=== PATIENT | female | born 1955 | race Caucasian/White ===

== ENCOUNTER 2019-07-06 10:15 | Outpatient (CLI) | payer MEDICARE, SELFPAY ==
--- NOTE | 2019-07-06 10:27 | XR_ITS ---
WS: [id number] XR knee LT 3V* [id number] REASON FOR EXAM: LEFT KNEE PAIN FINDINGS: Total left knee replacement. The prosthesis are seen in good alignment. There is soft tissue swelling surrounding the knee. There is no destructive changes of the supporting bony structures. XR/XR knee LT 3V* [id number] IMPRESSION: Total knee replacement on the left satisfactory. There is soft tissue swelling surrounding the knee.
== END 2019-07-06 10:16 | disposition home or self-care (01) ==
LOC: RAD 10:19
PROVIDERS: Family Provider Nurse Practitioner Family; PCP Nurse Practitioner Family; Visit Provider Orthopaedic Surgery
DX: M25.562 Pain in left knee (principal); Z96.652 Presence of left artificial knee joint
CPT/HCPCS: 73562

== ENCOUNTER 2019-10-12 10:51 | Outpatient (CLI) | payer MEDICARE, SELFPAY ==
--- NOTE | 2019-10-12 11:00 | MM_ITS ---
WS: [id number] BILATERAL SCREENING DIGITAL MAMMOGRAM WITH CAD HISTORY: SCREENING COMPARISON: 07/14/2018, 03/20/2017 and 01/10/2016 Bilateral CC and MLO views submitted. Computer aided detection analyzed. Breast composition: There are scattered areas of fibroglandular density. No suspicious masses, microc alcifications or architectural distortion. Long-term stability of an asymmetry in the upper outer guicho drant of the RIGHT breast with an associated single calcification. MM/[place] [id number] IMPRESSION: BI-RADS: 2-Benign FOLLOW UP: 1 Year Follow-up
== END 2019-10-12 10:52 | disposition home or self-care (01) ==
LOC: RADSHAW 10:56
PROVIDERS: PCP Nurse Practitioner Family; Visit Provider Nurse Practitioner Family
DX: Z12.31 Encounter for screening mammogram for malignant neoplasm of breast (principal)
CPT/HCPCS: 77067

== ENCOUNTER → 2020-05-30 08:34 | Outpatient (BNVA) | payer MEDICARE, SELFPAY | PROVIDERS: PCP Nurse Practitioner Family; Visit Provider Nurse Practitioner Family | DX: R53.83 Other fatigue (principal); Z13.6 Encounter for screening for cardiovascular disorders; M25.562 Pain in left knee | CPT/HCPCS: 80053; 80061; 82306; 82607; 84443; 85025 ==

== ENCOUNTER 2020-06-06 06:00 | Outpatient (RCR) | payer MEDICARE, SELFPAY | END 2020-06-17 23:59 | disposition home or self-care (01) | LOC: TPT 06:00 | PROVIDERS: PCP Nurse Practitioner Family; Referring Provider Nurse Practitioner Family; Visit Provider Nurse Practitioner Family | DX: M25.562 Pain in left knee (principal) | CPT/HCPCS: 97110; 97161 ==

== ENCOUNTER 2020-06-18 06:00 | Outpatient (RCR) | payer MEDICARE, SELFPAY | END 2020-07-15 23:59 | disposition home or self-care (01) | LOC: TPT 06:00 | PROVIDERS: PCP Nurse Practitioner Family; Referring Provider Nurse Practitioner Family; Visit Provider Nurse Practitioner Family | DX: M25.562 Pain in left knee (principal) | CPT/HCPCS: 97110; 97140 ==

== ENCOUNTER 2020-07-16 06:00 | Outpatient (RCR) | payer MEDICARE, SELFPAY | END 2020-08-15 23:59 | disposition home or self-care (01) | LOC: TPT 06:00 | PROVIDERS: PCP Nurse Practitioner Family; Referring Provider Nurse Practitioner Family; Visit Provider Nurse Practitioner Family | DX: M25.562 Pain in left knee (principal) | CPT/HCPCS: 97110; 97140 ==

== ENCOUNTER 2020-08-16 06:00 | Outpatient (RCR) | payer MEDICARE, SELFPAY | END 2020-09-14 23:59 | disposition home or self-care (01) | LOC: TPT 06:00 | PROVIDERS: PCP Nurse Practitioner Family; Referring Provider Nurse Practitioner Family; Visit Provider Nurse Practitioner Family | DX: M25.562 Pain in left knee (principal) | CPT/HCPCS: 97110 ==

== ENCOUNTER 2020-10-02 06:00 | Outpatient (RCR) | payer MEDICARE, SELFPAY | END 2020-10-15 23:59 | disposition home or self-care (01) | LOC: TPT 06:00 | PROVIDERS: PCP Nurse Practitioner Family; Referring Provider Orthopaedic Surgery; Visit Provider Orthopaedic Surgery | DX: T84.038A Mechanical loosening of other internal prosthetic joint, initial encounter (principal); Z96.659 Presence of unspecified artificial knee joint | CPT/HCPCS: 97110; 97162 ==

== ENCOUNTER 2020-10-04 12:35 | Emergency (ER) | payer MEDICARE, SELFPAY ==
[2020-10-04 13:39] VITALS: BP 145/80; PULSE 103; RESP 18; TEMP 36.9; O2SAT 92; BMI 30.2
--- NOTE | 2020-10-04 13:45 | USCV_ITS ---
Echo Rosales Age: 65 Gender: F : 1955 Exam Date: 10/04/2020 14:25 Ordering Phys: Pramod Michele DO Technologist: JAVON Exam Location: [facility] [place] Indication: Left leg pain HISTORY: Left lower extremity pain. PROCEDURES: Comparison: none available. Venous duplex imaging was performed in only the left lower extremity. The following venous structures were evaluated: common femoral vein, profunda vein, proximal portion of the greater saphenous vein, superficial femoral vein, and the popliteal vein. In addition, the posterior tibial and peroneal trunk were evaluated. Serial compression, augmentation maneuvers, and spectral Doppler flow evaluation were performed. FINDINGS: No evidence of DVT seen in any vessel visualized at this time. CONCLUSIONS No evidence of left lower extremity DVT. Antonio Butler MD (Electronically Signed) Final Date: 04 Oct 2020 16:23 S
[2020-10-04 15:07] VITALS: BP 141/84; PULSE 81; O2SAT 98
--- NOTE | 2020-10-04 15:15 | ED_ITS ---
HPI - Extremity Problem General: Chief complaint: Extremity Problem,Nontraumatic Stated complaint: LEFT LOWER LEG PAIN POSS DUE TO SURGERY Time Seen by Provider: 10/04/20 14:59 History of Present Illness: HPI Narrative: 65-year-old female who comes in complaining of redness and discomfort in her left lower leg. She states she had surgery on 09/25/2020 with a knee arthroplasty. MD Complaint: extremity pain and extremity swelling Onset (ago): minute(s) Pain Consistency: intermittent Location: left Quality: aching Radiation: none Relieving factors: nothing Exacerbating factors: nothing Associated symptoms: Deny arthralgias, chest pain, fever(s), myalgias, rash or short of breath Review of Systems Const: Denies: fever(s) ENMT: Denies: throat pain, ear or mastoid pain, nasal discharge or nasal congestion Card: Denies: chest pain Resp: Denies: dyspnea, productive cough or non-productive cough GI: Denies: abdominal pain, nausea, vomiting, hematemesis, coffee ground emesis, diarrhea, constipation, bloating, hematochezia or melena : Denies: flank pain, difficulty voiding, dysuria, urinary frequency or urinary urgency Skin/Breast: Denies: rash Physical Exam Const: COMMON NORMALS: no acute distress GENERAL APPEARANCE: cooperative and comfortable ORIENTATION/CONSCIOUSNESS: Yes awake, Yes oriented to person, Yes oriented to place and Yes oriented to time HENMT: COMMON NORMALS: normocephalic, atraumatic and hearing grossly normal bilaterally HEAD & SCALP: normocephalic and atraumatic Eye: COMMON NORMALS: Equal, round and reactive pupils present, EOMs intact bilaterally, conjunctivae normal and no scleral icterus CONJUNCTIVA: Yes conjunctivae normal PUPIL: Yes Equal, round and reactive pupils present Neck/C-Spine: COMMON NORMALS: no JVD Resp: COMMON NORMALS: normal respiratory effort, No retractions, No use of accessory muscles and clear to auscultation bilaterally AUSCULTATION: clear to auscultation bilaterally Cardio: COMMON NORMALS: no JVD, regular rate, regular rhythm and No murmurs present (Cardio) RATE: regular rate RHYTHM: regular rhythm GI: COMMON NORMALS: Soft to palpation and No hepatosplenomegaly present AUSCULTATION: Yes normoactive bowel sounds PALPATION: Yes Soft to palpation, No Tenderness to palpation present (GI), No Guarding due to palpation present (GI) and Yes No hepatosplenomegaly present Extremity: COMMON NORMALS: normal to inspection, capillary refill normal, no clubbing, cyanosis or edema, no calf tenderness and no pedal edema NARRATIVE EXTREMITY EXAM: No sign infection erythema wound looks good no dehiscence no drainage no radiation. No evidence of significant swelling in the lower extremity no evidence of a compartment syndrome there is a hematoma on the medial aspect of the knee that is mildly tender Neuro: SENSORIUM/ORIENTATION: Yes oriented to person, Yes oriented to place and Yes oriented to time Skin: COMMON NORMALS: no rashes or lesions noted GENERAL SKIN EXAM: no rashes or lesions noted Course Vital Signs: Vital signs: Vital Signs Temperature 98.4 F 10/04/20 13:39 Pulse Rate 85 10/04/20 17:02 Respiratory Rate 18 10/04/20 13:39 Blood Pressure 143/78 10/04/20 17:02 Pulse Oximetry 95 10/04/20 17:02 MDM - Extremity (Nontraumatic) MDM Narrative: Medical decision making narrative: Discussed with the patient as well as with her on-call physician from the orthopedist office where she had this procedure done. Minimal weightbearing ice and elevate recommend they follow-up with orthopedics as soon as possible plain x-ray and venous duplex both were negative today reviewed the results with him Discharge Plan Discharge Patient Disposition: Home Clinical Impression: Left knee pain, History of arthroplasty of left knee Condition: Stable Prescriptions: No Action loratadine 10 mg tablet 10 mg PO BEDTIME RF: 0 multivitamin Tablet 1 tab PO DAILY RF: 0 celecoxib 200 mg capsule 200 mg PO DAILY RF: 0 alendronate 70 mg Tablet 70 mg PO Q7D RF: 0 Colace 100 mg Capsule 200 mg PO BEDTIME RF: 0 omeprazole 20 mg capsule,delayed release(DR/EC) 20 mg PO BID PRN (Reason: Acid Reflux) RF: 0 aspirin 81 mg Tablet,Chewable 81 mg PO BID RF: 0 Miralax 17 gram/dose Powder 17 g PO BEDTIME RF: 0 loratadine 10 mg tablet 10 mg PO BEDTIME RF: 0 oxycodone 10 mg tablet 10 mg PO Q4H PRN (Reason: Pain) RF: 0 primidone 50 mg tablet 50 mg PO BEDTIME RF: 0 trazodone 50 mg tablet 100 mg PO BEDTIME RF: 0 duloxetine 30 mg capsule,delayed release(DR/EC) 30 mg PO BEDTIME RF: 0 Discharge Orders: Discharge ED (Routine); Ordered 10/04/20 Ordered By: Pramod Michele Referrals: Verona Howard NP [Primary Care Provider] - Discharge Diet: Usual diet Discharge Activity: Limit activity as instructed Patient Instructions: Opioid Safety Coding Level of Care Code ED Clinical Care Manager for Alina Stevens
--- NOTE | 2020-10-04 15:43 | XR_ITS ---
WS: [id number] Left knee, 3 views, 10/04/2020 Clinical Data: pain Comparison: Left knee, 07/06/2019. Findings: The left knee arthroplasty has been performed. There are long stems in both the femoral and tibial po rtions of the prosthesis. No loosening is seen. The soft tissues are normal. XR/XR knee LT 3V* [id number] Impression: No change in left knee arthroplasty. Kellgren-Brendan Classification: NA
[2020-10-04 17:02] VITALS: BP 143/78; PULSE 85; O2SAT 95
== END 2020-10-04 17:02 | disposition home or self-care (01) ==
PROVIDERS: Emergency Provider Family Medicine; PCP Nurse Practitioner Family
DX: M25.562 Pain in left knee (principal); M79.605 Pain in left leg; Z96.652 Presence of left artificial knee joint; Z79.82 Long term (current) use of aspirin
CPT/HCPCS: 73562; 93971; 99283

== ENCOUNTER 2020-10-16 06:00 | Outpatient (RCR) | payer MEDICARE, SELFPAY | END 2020-11-14 23:59 | disposition home or self-care (01) | LOC: TPT 06:00 | PROVIDERS: PCP Nurse Practitioner Family; Referring Provider Orthopaedic Surgery; Visit Provider Orthopaedic Surgery | DX: Z47.1 Aftercare following joint replacement surgery (principal); Z96.659 Presence of unspecified artificial knee joint | CPT/HCPCS: 97110 ==

== ENCOUNTER → 2020-11-14 09:25 | Outpatient (BNVA) | payer MEDICARE, SELFPAY | PROVIDERS: PCP Nurse Practitioner Family; Visit Provider Nurse Practitioner Family | DX: F32.9 Major depressive disorder, single episode, unspecified (principal); F41.9 Anxiety disorder, unspecified; Z13.6 Encounter for screening for cardiovascular disorders | CPT/HCPCS: 80053; 80061; 84439; 84443; 85025 ==

== ENCOUNTER 2020-11-15 06:00 | Outpatient (RCR) | payer MEDICARE, SELFPAY | END 2020-12-15 23:59 | disposition home or self-care (01) | LOC: TPT 06:00 | PROVIDERS: PCP Nurse Practitioner Family; Referring Provider Orthopaedic Surgery; Visit Provider Orthopaedic Surgery | DX: Z47.1 Aftercare following joint replacement surgery (principal); Z96.659 Presence of unspecified artificial knee joint; T84.038A Mechanical loosening of other internal prosthetic joint, initial encounter | CPT/HCPCS: 97110; 97164; 97530 ==

== ENCOUNTER 2020-11-20 16:01 | Outpatient (CLI) | payer MEDICARE, SELFPAY ==
--- NOTE | 2020-11-20 16:15 | XR_ITS ---
WS: [id number] SCREENING DEXA SCAN Kopo Kopo CLINICAL INFORMATION: M81.0 - Age-related osteoporosis without current patholog... COMPARISON: None. FINDINGS: The L1-L4 bone mineral density measures 1.044 g/cm2. This corresponds to a T score score of -1.1 and Z score of 0.3. Left femoral neck bone mineral density measures 0.806 g/cm2. This corresponds to a T score of -1.6 an d Z score of -0.5. Right femoral neck bone mineral density measures 0.937 g/cm2. This corresponds to a T score -0.6of an d Z score of 0.5. Mean femoral neck bone mineral density measures 0.872 g/cm2. This corresponds to a T score of -1.1 an d Z score of 0.0. XR/XR DEXA axial skeleton* [id number] IMPRESSION: Osteopenia Patient's FRAX calculated 10 year probability for major osteoporotic fracture i s 9.4 % and osteoporotic hip fracture is 1.2%.
== END 2020-11-20 16:02 | disposition home or self-care (01) ==
LOC: RADWPI 16:03
PROVIDERS: PCP Nurse Practitioner Family; Visit Provider Nurse Practitioner Family
DX: M81.0 Age-related osteoporosis without current pathological fracture (principal); M85.88 Other specified disorders of bone density and structure, other site
CPT/HCPCS: 77080

== ENCOUNTER 2020-12-16 06:00 | Outpatient (RCR) | payer MEDICARE, SELFPAY | END 2021-01-15 23:59 | disposition home or self-care (01) | LOC: TPT 06:00 | PROVIDERS: PCP Nurse Practitioner Family; Referring Provider Orthopaedic Surgery; Visit Provider Orthopaedic Surgery | DX: T84.038D Mechanical loosening of other internal prosthetic joint, subsequent encounter (principal); X58.XXXD Exposure to other specified factors, subsequent encounter; Z96.659 Presence of unspecified artificial knee joint | CPT/HCPCS: 97110; 97150; 97164; 97530 ==

== ENCOUNTER 2020-12-21 07:25 | Outpatient (CLI) | payer MEDICARE, SELFPAY ==
--- NOTE | 2020-12-21 08:00 | US_ITS ---
WS: [id number] THYROID ULTRASOUND (TI-RADS CRITERIA) History: Single thyroid nodule follow-up.. Technique: Ultrasound examination of the thyroid and adjacent soft tissues is performed. FINDINGS: Right lobe: 4.3 cm x 1.1 cm x 1.3 cm. Volume: 3.3 cm3. Normal size and echotexture. No significant are dominant nodules are present. Left lobe: 4.2 cm x 1.7 cm x 1.5 cm. Volume: 5.6 cm3. Normal size and echotexture. No significant or dominant nodules are present. Lymph nodes: None. NODULE: 1 Size: 0.8 x 1.0 x 1.1 cm Location: Mid LEFT Composition: Mixed cystic and solid (1) Echogenicity: Hyperechoic (1) Shape: Not taller than wide (0) Margins: Smooth (0) Echogenic foci: Punctate echogenic foci (3) ACR TI-RADS total points: 5 ACR TI-RADS risk category: TR5 Isthmus: 0.4 cm. US/US thyroid 61093 Impression: TR 4 Recommendation:Follow-up ultrasound in 1, 2, 3 and 5 years. If this nodule incr eases in size greater than 1.5 cm fine-needle aspiration should be performed. If thyroid nodule(s) change on follow-up examinations the recommendations will be altered as necessary.
== END 2020-12-21 07:26 | disposition home or self-care (01) ==
LOC: US 07:27
PROVIDERS: PCP Nurse Practitioner Family; Visit Provider Nurse Practitioner Family
DX: E04.1 Nontoxic single thyroid nodule (principal)
CPT/HCPCS: 76536

== ENCOUNTER → 2020-12-26 10:42 | Outpatient (BNVA) | payer MEDICARE, SELFPAY | PROVIDERS: PCP Nurse Practitioner Family; Visit Provider Internal Medicine | DX: Z01.812 Encounter for preprocedural laboratory examination (principal); Z20.822 Contact with and (suspected) exposure to COVID-19; Z86.010 Personal history of colon polyps | CPT/HCPCS: 87635 ==

== ENCOUNTER 2020-12-31 08:00 | Day surgery (SDC) | payer MEDICARE, SELFPAY ==
[2020-12-26 14:13] VITALS: BMI 30.2
--- NOTE | 2020-12-31 08:21 | ANES.PREANE2 ---
Pre-Anesthetic Assessment Pre-Anesthetic Assessment: Height/Weight: Height 1.55 m Weight 72.575 kg Preop Diagnosis: History of colon polyps Proposed Procedure: Operation Date: 12/31/20 09:30 Proposed Procedures p Colonoscopy 83043 Z86.010(Not Applicable) - Lucio Ferrer MD Familial anesthetic complications: None Was Beta Naomi taken within 24 hours: N/A Was Clonidine taken within 24 hours: N/A Last intake: > 8 hrs Social: Social History: No alcohol and No tobacco Exam: Pre-Anes Outpt Exam: alert, oriented x 3, clear to auscultation bilaterally and regular rate & rhythm Airway: Cervical ROM: WNL MP: 2 Dentition: Full GI: GI: GERD Musc/skel: Musc/skel: OA/DJD Comments: L knee replacement (3x) Anesthetic Plan: ASA status: 1 Risk of > 500 ml blood loss (7ml/kg in children): No PFSH Anesthesia PFSH: Social History Smoking and tobacco status: former smoker Quit status (tobacco): has quit using tobacco Year quit tobacco: 2008 Former quit date comment: smoked PPD x 40 yrs Second hand smoke exposure: No Alcohol intake: unknown Caregiver/support person: Yes (spouse) Lives independently: Yes Household members: spouse Marital status: service: No Current occupational status: retired History of recent travel: No Current gender identity: Female Special kentrell needs: No Agree to transfusion: Yes Data Anesthesia Cardiac Studies: No Data to Display
[2020-12-31 08:32] VITALS: BP 171/102; PULSE 113; RESP 18; TEMP 36.4; O2SAT 97
[2020-12-31] MEDS: sodium chloride 0.9% 1,000 ML 30 ML IV (09:01)
--- NOTE | 2020-12-31 09:17 | W.PM.OPSFHP ---
Same Day Surgery H&P Indication for Procedure/HPI DATE OF PROCEDURE: December 31, 2020 CHIEF COMPLAINT/INDICATIONFOR SURGICAL PROCEDURE: History of colon polyps PREOP DIAGNOSIS: History of colon polyps PLANNED PROCEDRUE: Operation Date: 12/31/20 09:30 Proposed Procedures p Colonoscopy 56260 Z86.010(Not Applicable) - Lucio Ferrer MD Medications/Allergies* Home Medications Medication Instructions Recorded Confirmed Type aspirin 81 mg PO DAILY 10/04/20 12/31/20 History docusate sodium [Colace] 200 mg PO BEDTIME 10/04/20 12/31/20 History multivitamin 1 tab PO DAILY 10/04/20 12/31/20 History Allergies/Adverse Reactions Allergy/AdvReac Type Severity Reaction Status Date / Time iodine Allergy Intermediate rash Verified 12/13/20 09:39 Penicillins Allergy Intermediate stomach Verified 12/13/20 09:39 Current Medications: Generic Name Dose Route Start Last Admin Trade Name Freq PRN Reason Stop Dose Admin Sodium Chloride 1,000 mls @ 30 mls/hr 12/31/20 08:15 12/31/20 09:01 Sodium Chloride 0.9% IV 01/01/21 08:14 30 mls/hr .Q24H PEREZ Administration Pertinent History/Comorbid Conditions* Social History Smoking and tobacco status: former smoker Quit status (tobacco): has quit using tobacco Year quit tobacco: 2008 Former quit date comment: smoked PPD x 40 yrs Second hand smoke exposure: No Alcohol intake: unknown Caregiver/support person: Yes (spouse) Lives independently: Yes Household members: spouse Marital status: service: No Current occupational status: retired History of recent travel: No Current gender identity: Female Special kentrell needs: No Agree to transfusion: Yes Pertinent Exam Findings alert, oriented x 3, clear to auscultation bilaterally, regular rate & rhythm, operative site marked and procedure specific exam findings Recommendations Surgery/Procedure today Coding Level of Care Code Acute Supply Analyst for Alina Stevens
[2020-12-31 10:24] VITALS: BP 111/66; PULSE 89; RESP 16; O2SAT 100
[2020-12-31 10:33] VITALS: O2SAT 95
--- NOTE | 2020-12-31 15:10 | ANE.PACU2 ---
Inpatient post-anesthesia follow up: Airway intact: Yes Vital signs: Temperature 97.5 F Pulse Rate 89 Respiratory Rate 16 Blood Pressure 111/66 Pulse Oximetry 95 Oxygen Delivery Me thod Nasal Cannula Oxygen Flow Rate 2 Fraction of Inspir ed Oxygen Hydration adequate: Yes Nausea and vomiting: No Pain level: 1 Mental status: Baseline
== END 2020-12-31 10:54 | disposition home or self-care (01) ==
PROVIDERS: PCP Nurse Practitioner Family; Visit Provider Internal Medicine
PROC: 0DJD8ZZ Inspection of Lower Intestinal Tract, Via Natural or Artificial Opening Endoscopic (ICD-10-PCS; CPT 45378; principal; 2020-12-31 09:30)
DX: Z12.11 Encounter for screening for malignant neoplasm of colon (principal); Z86.010 Personal history of colon polyps; K57.30 Diverticulosis of large intestine without perforation or abscess without bleeding; K21.9 Gastro-esophageal reflux disease without esophagitis; M19.90 Unspecified osteoarthritis, unspecified site; Z87.891 Personal history of nicotine dependence
CPT/HCPCS: 45378; 96360; 96361; J2704; J7030

== ENCOUNTER → 2021-02-05 12:46 | Outpatient (BNVA) | payer MEDICARE, SELFPAY | PROVIDERS: PCP Nurse Practitioner Family; Visit Provider Nurse Practitioner Family | DX: M79.643 Pain in unspecified hand (principal); R73.9 Hyperglycemia, unspecified; Z13.6 Encounter for screening for cardiovascular disorders; G25.0 Essential tremor; M79.641 Pain in right hand; M79.642 Pain in left hand; S93.401A Sprain of unspecified ligament of right ankle, initial encounter | CPT/HCPCS: 80053; 80061; 82607; 83036; 84443; 84550; 85025; 85651; 86038; 86140; 86431 ==

== ENCOUNTER 2021-02-12 09:56 | Outpatient (CLI) | payer MEDICARE, SELFPAY ==
--- NOTE | 2021-02-12 10:00 | MM_ITS ---
WS: [id number] BILATERAL DIGITAL SCREENING MAMMOGRAPHY WITH CAD CLINICAL INFORMATION: Z12.39 - Encounter for other screening for malignant neop... HISTORY: Screening mammogram. No current complaints. COMPARISON: October 12, 2019 TECHNIQUE: Bilateral CC and MLO views. FINDINGS: Scattered fibroglandular densities bilaterally. No suspicious focal mass, asymmetry, calcifications, or architectural distortion. No evidence of malignancy. A few punctate calcifications right breast. MM/[place] [id number] IMPRESSION: BI-RADS: 2-Benign FOLLOW UP: 1 Year Follow-up Recommend return to annual screening mammography.
== END 2021-02-12 09:57 | disposition home or self-care (01) ==
LOC: RADSHAW 09:59
PROVIDERS: PCP Nurse Practitioner Family; Visit Provider Nurse Practitioner Family
DX: Z12.31 Encounter for screening mammogram for malignant neoplasm of breast (principal)
CPT/HCPCS: 77067

== ENCOUNTER → 2021-02-14 11:03 | Outpatient (BNVA) | payer MEDICARE, SELFPAY | PROVIDERS: PCP Nurse Practitioner Family; Visit Provider Nurse Practitioner Family | DX: M79.643 Pain in unspecified hand (principal) | CPT/HCPCS: 86038 ==

== ENCOUNTER → 2021-04-05 16:34 | Outpatient (BNVA) | payer MEDICARE, SELFPAY | PROVIDERS: PCP Nurse Practitioner Family; Visit Provider Nurse Practitioner Family | DX: M25.511 Pain in right shoulder (principal); M25.541 Pain in joints of right hand; M85.841 Other specified disorders of bone density and structure, right hand | CPT/HCPCS: 73030; 73130 ==

== ENCOUNTER → 2021-11-04 15:46 | Outpatient (BNVA) | payer MEDICARE, SELFPAY | PROVIDERS: PCP Nurse Practitioner Family; Visit Provider Family Medicine | DX: Z12.39 Encounter for other screening for malignant neoplasm of breast (principal); E04.1 Nontoxic single thyroid nodule; R53.82 Chronic fatigue, unspecified; Z00.00 Encounter for general adult medical examination without abnormal findings; Z12.11 Encounter for screening for malignant neoplasm of colon; Z12.31 Encounter for screening mammogram for malignant neoplasm of breast; Z13.6 Encounter for screening for cardiovascular disorders | CPT/HCPCS: 80053; 80061; 82306; 82607; 83540; 84443; 85025 ==

== ENCOUNTER → 2021-11-07 12:58 | Outpatient (BNVA) | payer MEDICARE, SELFPAY | PROVIDERS: PCP Nurse Practitioner Family; Visit Provider Family Medicine | DX: R53.1 Weakness (principal); R07.9 Chest pain, unspecified; F32.A Depression, unspecified | CPT/HCPCS: 82962 ==

== ENCOUNTER 2021-11-14 15:31 | Outpatient (CLI) | payer MEDICARE, SELFPAY ==
--- NOTE | 2021-11-14 15:45 | US_ITS ---
WS: [id number] THYROID ULTRASOUND (TI-RADS CRITERIA) History: Follow-up thyroid nodule.. Technique: Ultrasound examination of the thyroid and adjacent soft tissues is performed. Comparison: 12/21/2020 and 10/15/2018 FINDINGS: Right lobe: 1.0 cm x 1.1 cm x 3.8 cm. Volume: 2.3 cm3. Normal size and echotexture. Lymph nodes: None. Left lobe: 1.4 cm x 1.3 cm x 3.9 cm. Volume: 3.6 cm3. Normal size thyroid. Complex cystic nodule in the mid gland. Details below. Lymph nodes: None. NODULE: 1 Size: 1.0 x 0.8 x 1.2 cm. Location: Mid Composition: Mixed cystic and solid (1) Echogenicity: Hyperechoic (1) Shape: Not taller than wide (0) Margins: Smooth (0) Echogenic foci: None (0) ACR TI-RADS total points: 2 ACR TI-RADS risk category: TR2 Isthmus: 0.2 cm. US/US thyroid 51713 Impression: TR2 Recommendation:Yearly follow-up. The small echogenic foci noted on the prior st udy are not as apparent today and they are slightly more cystic component. If thyroid nodule(s) change on follow-up examinations the recommendations will be altered as necessary.
== END 2021-11-14 15:32 | disposition home or self-care (01) ==
LOC: RAD 15:32
PROVIDERS: PCP Nurse Practitioner Family; Visit Provider Family Medicine
DX: E04.1 Nontoxic single thyroid nodule (principal)
CPT/HCPCS: 76536

== ENCOUNTER → 2022-01-09 17:18 | Outpatient (BNVA) | payer MEDICARE, SELFPAY | PROVIDERS: PCP Nurse Practitioner Family; Visit Provider Family Medicine | DX: R10.30 Lower abdominal pain, unspecified (principal); R19.7 Diarrhea, unspecified | CPT/HCPCS: 81000 ==

== ENCOUNTER → 2022-01-21 11:13 | Outpatient (BNVA) | payer MEDICARE, SELFPAY | PROVIDERS: PCP Nurse Practitioner Family; Visit Provider Family Medicine | DX: N39.0 Urinary tract infection, site not specified (principal); F32.A Depression, unspecified; G25.0 Essential tremor | CPT/HCPCS: 81000 ==

== ENCOUNTER → 2022-02-12 11:31 | Outpatient (BNVA) | payer MEDICARE, SELFPAY | PROVIDERS: PCP Nurse Practitioner Family; Visit Provider Family Medicine | DX: M25.541 Pain in joints of right hand (principal); M25.542 Pain in joints of left hand; E04.1 Nontoxic single thyroid nodule; E78.5 Hyperlipidemia, unspecified; Z00.00 Encounter for general adult medical examination without abnormal findings | CPT/HCPCS: 80053; 80061; 84443; 85025 ==

== ENCOUNTER 2022-02-14 12:45 | Outpatient (CLI) | payer MEDICARE, SELFPAY ==
--- NOTE | 2022-02-14 13:06 | MM_ITS ---
WS: [id number] VIEWS: MLO and CC views both breasts. 3D digital tomosynthesis is also included in this exam. Comparison made with prior exam of 05/06/2013. A 05/10/2015. 03/20/2017, 07/14/2018, 10/12/2019, 1.. Findings: There was no sign of mass, architectural distortion or suspicious calcification in either breast. Sc attered fibroglandular densities MM/[place] [id number] Impression: BI-RADS: 2-Benign FOLLOW-UP: 1 Year Follow-up This mammogram was also analyzed by the Computer Aided Detection System R2 Imag e Elevating Grader Operator.
== END 2022-02-14 12:46 | disposition home or self-care (01) ==
LOC: RAD 12:47
PROVIDERS: PCP Nurse Practitioner Family; Visit Provider Family Medicine
DX: Z12.31 Encounter for screening mammogram for malignant neoplasm of breast (principal)
CPT/HCPCS: 77063; 77067

== ENCOUNTER → 2022-04-24 17:25 | Outpatient (BNVA) | payer MEDICARE, SELFPAY | PROVIDERS: PCP Nurse Practitioner Family; Visit Provider Family Medicine | DX: R05.9 Cough, unspecified (principal); J01.90 Acute sinusitis, unspecified | CPT/HCPCS: 87400 ==

== ENCOUNTER → 2022-06-03 09:39 | Outpatient (BNVA) | payer MEDICARE, SELFPAY | PROVIDERS: PCP Nurse Practitioner Family; Visit Provider Internal Medicine Rheumatology | DX: M19.041 Primary osteoarthritis, right hand (principal); M19.042 Primary osteoarthritis, left hand; Z96.659 Presence of unspecified artificial knee joint; M54.50 Low back pain, unspecified; G89.29 Other chronic pain | CPT/HCPCS: 99204 ==

== ENCOUNTER → 2022-09-01 10:54 | Outpatient (BNVA) | payer MEDICARE, OTHER, SELFPAY | PROVIDERS: Visit Provider Internal Medicine Rheumatology | DX: M19.041 Primary osteoarthritis, right hand (principal); M19.042 Primary osteoarthritis, left hand; Z96.659 Presence of unspecified artificial knee joint; M54.50 Low back pain, unspecified; G89.29 Other chronic pain | CPT/HCPCS: 99214 ==

== ENCOUNTER 2022-09-02 06:00 | Outpatient (RCR) | payer MEDICARE, SELFPAY | END 2022-09-14 23:59 | disposition home or self-care (01) | LOC: TPT 06:00 | PROVIDERS: Visit Provider Physician Assistant | DX: Z47.89 Encounter for other orthopedic aftercare (principal) | CPT/HCPCS: 97110; 97140; 97162 ==

== ENCOUNTER 2022-09-15 06:00 | Outpatient (RCR) | payer MEDICARE, SELFPAY | END 2022-10-14 23:59 | disposition home or self-care (01) | LOC: TPT 06:00 | PROVIDERS: Visit Provider Physician Assistant | DX: Z47.89 Encounter for other orthopedic aftercare (principal) | CPT/HCPCS: 97110 ==

== ENCOUNTER → 2022-10-22 12:15 | Outpatient (BNVA) | payer MEDICARE, SELFPAY | PROVIDERS: Visit Provider Family Medicine | DX: E78.5 Hyperlipidemia, unspecified (principal); K21.9 Gastro-esophageal reflux disease without esophagitis; R10.11 Right upper quadrant pain; Z13.6 Encounter for screening for cardiovascular disorders; R53.83 Other fatigue; M25.562 Pain in left knee; G25.0 Essential tremor; M81.0 Age-related osteoporosis without current pathological fracture; R07.9 Chest pain, unspecified; R53.82 Chronic fatigue, unspecified | CPT/HCPCS: 80053; 80061; 82306; 82607; 83540; 84443 ==

== ENCOUNTER 2022-10-27 13:03 | Outpatient (CLI) | payer MEDICARE, SELFPAY ==
--- NOTE | 2022-10-27 13:15 | US_ITS ---
WS: [id number] Complete ABDOMINAL ULTRASOUND HISTORY: RIGHT upper quadrant pain COMPARISON: None available. Liver: 13.1 cm in length. Normal size liver and echogenicity. No bile duct dilatation or mass. Portal Vein: Normal hepatopetal flow with monophasic waveform. Gallbladder: Normally distended gallbladder with no stones or wall thickening. CBD: 0.3 cm Pancreas: Normal size and echogenicity. Right kidney: 9.0 cm x 4.8 x 3.4 cm. Cortex:1.2 cm. Normal size and echogenicity. No hydronephrosis or mass. Left kidney: 9.9 cm x 5.0 cm x 6.2 cm. Cortex: 1.3 cm. Normal size and echogenicity. No hydronephrosis or mass. Spleen: Normal. Aorta and IVC: Unremarkable abdominal aorta and IVC. US/US abdomen complete* [id number] Impression: Normal complete abdomen ultrasound.
== END 2022-10-27 13:04 | disposition home or self-care (01) ==
LOC: RAD 13:04
PROVIDERS: PCP Family Medicine; Visit Provider Family Medicine
DX: R10.11 Right upper quadrant pain (principal)
CPT/HCPCS: 76700

== ENCOUNTER 2022-11-10 09:47 | Outpatient (CLI) | payer MEDICARE, SELFPAY ==
--- NOTE | 2022-11-10 10:00 | NM_ITS ---
WS: [id number] NUCLEAR MEDICINE HIDA SCAN WITH GALLBLADDER EJECTION FRACTION HISTORY: R10.11 - Right upper quadrant pain COMPARISON: Gallbladder ultrasound 10/27/2022 TECHNIQUE: The patient was intravenously injected with 7.6 mCi of TC99m Mebrofenin. Immediate imaging over the right upper quadrant was followed by 5 minute image and additional images for a total of 60 minutes. Normal uptake of radiotracer throughout the liver. Activity identified in the gallbladder at 20 minutes and well distended by 60 minutes. Activity in the proximal small bowel was seen by 60 minutes. Good washout of the radiotracer from the liver by 60 minutes. The patient then drank 8 ounces of Ensure Plus. Ejection fraction at 60 minutes was 84%. Normal GB ej ection fraction is 35-75%. Post fatty meal symptoms: None. NM/NM hepatobiliary w phar* [id number] IMPRESSION: 1. Normal HIDA scan. 2. Normal gallbladder ejection fraction.
== END 2022-11-10 09:48 | disposition home or self-care (01) ==
LOC: RAD 09:48
PROVIDERS: PCP Family Medicine; Visit Provider Family Medicine
DX: R10.11 Right upper quadrant pain (principal)
CPT/HCPCS: 78227; A9537

== ENCOUNTER → 2022-11-11 12:16 | Outpatient (BNVA) | payer MEDICARE, SELFPAY | PROVIDERS: PCP Family Medicine; Visit Provider Family Medicine | DX: R10.13 Epigastric pain (principal) | CPT/HCPCS: 87338 ==

== ENCOUNTER 2022-11-26 10:55 | Outpatient (CLI) | payer MEDICARE, SELFPAY ==
--- NOTE | 2022-11-26 11:15 | US_ITS ---
WS: [id number] ULTRASOUND THYROID TECHNIQUE: Ultrasound of the thyroid. CLINICAL INFORMATION: E04.1 - Nontoxic single thyroid nodule COMPARISON: November 14, 2021 FINDINGS: Thyroid: Right and left thyroid lobes are normal in size and echotexture. Right thyroid lobe: 3.9 cm x 1.2 cm x 1.9 cm Left thyroid lobe: 4.0 cm x 1.6 cm x 1.3 cm. Complex cystic LEFT thyroid nodule in the mid thyroid measuring 1.3 x 0.7 x 1.0 CM Isthmus: 0.3 mm. Cervical lymphadenopathy: None. NODULE: 1 Size: 1.3 x 0.7 x 1.0 cm. Location: Mid Composition: Mixed cystic and solid (1) Echogenicity: Hyperechoic (1) Shape: Not taller than wide (0) Margins: Smooth (0) Echogenic foci: None (0) ACR TI-RADS total points: 2 ACR TI-RADS risk category: TR2 US/US thyroid 96140 IMPRESSION: Complex cystic LEFT thyroid nodule in the mid thyroid measuring 1.3 x 0.7 x 1.0 CM. This is unchanged since 2021. Recommend 1-2 year follow-up.
== END 2022-11-26 10:56 | disposition home or self-care (01) ==
PROVIDERS: PCP Family Medicine; Visit Provider Family Medicine
DX: E04.1 Nontoxic single thyroid nodule (principal)
CPT/HCPCS: 76536

== ENCOUNTER → 2022-12-09 10:00 | Outpatient (BNVA) | payer MEDICARE, SELFPAY | PROVIDERS: PCP Family Medicine; Visit Provider Surgery | DX: R10.13 Epigastric pain (principal); K21.9 Gastro-esophageal reflux disease without esophagitis; R13.10 Dysphagia, unspecified; Z86.010 Personal history of colon polyps | CPT/HCPCS: 99203 ==

== ENCOUNTER 2023-01-14 08:33 | Day surgery (SDC) | payer MEDICARE, SELFPAY ==
[2023-01-12 08:39] VITALS: BMI 27.6
[2023-01-14 08:52] VITALS: BP 131/86; PULSE 91; RESP 16; TEMP 36.3; O2SAT 97
[2023-01-14] MEDS: sodium chloride 0.9% 1,000 ML 30 ML IV (09:11)
--- NOTE | 2023-01-14 09:24 | ANES.PREANE2 ---
Pre-Anesthetic Assessment Height/Weight: Height 1.55 m Weight 66.224 kg Temp Pulse Resp BP Pulse Ox O2 Del Method 97.3 F L 91 16 131/86 97 Room Air 01/14/23 08:52 01/14/23 08:52 01/14/23 08:52 01/14/23 08:52 01/14/23 08:52 01/14/23 08:52 Preop Diagnosis: abd pain Operation Date: 01/14/23 09:15 Proposed Procedures p 17481 - EGD w/balloon dial R13.10,R10. 13 colonoscopy 85759, Z86.10,K21.0(Not Applicable) - Fabian Laguna DO s Colonoscopy(Not Applicable) - Fabian Laguna DO Familial anesthetic complications: none Was Beta Naomi taken within 24 hours: N/A Was Clonidine taken within 24 hours: N/A Last intake: Intake Last Liquid Date 01/13/23 Last Liquid Time 22:00 Last Solid Date 01/12/23 Last Solid Time 12:00 Last Intake: 22:00 Social No alcohol and No tobacco Exam alert, oriented x 3, clear to auscultation bilaterally and regular rate & rhythm Airway Submandibular: within normal limits Cervical ROM: within normal limits Mallampati: Class II Dentition: full Pulmonary None reported CV/HEM None reported None reported Hepatic None reported GI Gastroesophageal Reflux Disease Metabolic None reported Musc/skel Lower Back Pain Neuropsych Anxiety and Depression Anesthetic Plan ASA status: 2 Anesthesia: MAC Medications/Allergies Home Medications Medication Instructions Recorded Confirmed Last Taken Type aspirin 81 mg chewable tablet 81 mg PO DAILY 10/04/20 01/14/23 01/12/23 History fluticasone propionate 50 2 spray intranasal DAILY #16 grams 11/14/20 01/14/23 01/12/23 Rx mcg/actuation nasal spray,suspension (Flonase Allergy Relief) albuterol sulfate 90 mcg/actuation 2 puff inhalation QID PRN 10/10/21 01/14/23 2 Weeks Ago Rx aerosol inhaler (ProAir HFA) shortness of breath or wheezing ~12/31/22 #8.5 grams loratadine 10 mg tablet 10 mg PO BEDTIME #90 tabs 12/27/21 01/14/23 01/12/23 Rx ammonium lactate 12 % topical cream 1 applic topical DAILY #385 grams 03/01/14/23 01/13/23 Rx pantoprazole 40 mg tablet,delayed 40 mg PO BID #60 tabs 11/10/22 01/14/23 01/13/23 Rx release (Protonix) sucralfate 1 gram tablet (Carafate) 1 g PO TID #90 tabs 11/10/22 01/14/23 1 Week Ago Rx ~01/07/23 primidone 50 mg tablet 50 mg PO QPM 01/12/23 01/14/23 01/13/23 History rosuvastatin 5 mg tablet 5 mg PO QPM 01/12/23 01/14/23 01/13/23 History trazodone 100 mg tablet 100 mg PO QPM 01/12/23 01/14/23 01/12/23 History Allergies Allergy/AdvReac Type Severity Reaction Status Date / Time iodine Allergy Intermediate rash Verified 01/14/23 08:50 Penicillins Allergy Intermediate stomach Verified 01/14/23 08:50 PFSH Anesthesia Medical History Chronic low back pain Osteoarthritis of hands, bilateral Surgical History H/O: hysterectomy 2000; complete hysterectomy History of colonoscopy 12/2020; repeat in 5 years; Dr. Ferrer History of knee surgery left knee September 25, 2020 History of nasal surgery Hx of total knee arthroplasty Family History Other CAD (coronary artery disease) Cancer Family history of premature coronary artery disease Hypertension Rheumatoid arthritis Denies family history of Lupus Social History Smoking and tobacco status: former smoker Quit status (tobacco): has quit using tobacco Year quit tobacco: 2008 Former quit date comment: smoked PPD x 40 yrs Second hand smoke exposure: No Alcohol intake: unknown Substance/Drug Use: never Caregiver/support person: Yes (spouse) Lives independently: Yes Household members: spouse Marital status: service: No Current occupational status: retired Current gender identity: Female Special kentrell needs: No Agree to transfusion: Yes Female Reproductive History Para: 2 Data Anesthesia Cardiac Studies: No Data to Display
--- NOTE | 2023-01-14 09:30 | PM.HP ---
Providers/Chief Complaint Primary Care Provider: Anila Stapleton MD Chief Complaint: [id number] History of Present Illness Echo Rosales is a 67 year old female Medications/Allergies Home Medications Medication Instructions Recorded Confirmed Last Taken Type aspirin 81 mg chewable tablet 81 mg PO DAILY 10/04/20 01/14/23 01/12/23 History fluticasone propionate 50 2 spray intranasal DAILY #16 grams 11/14/20 01/14/23 01/12/23 Rx mcg/actuation nasal spray,suspension (Flonase Allergy Relief) albuterol sulfate 90 mcg/actuation 2 puff inhalation QID PRN 10/10/21 01/14/23 2 Weeks Ago Rx aerosol inhaler (ProAir HFA) shortness of breath or wheezing ~12/31/22 #8.5 grams loratadine 10 mg tablet 10 mg PO BEDTIME #90 tabs 12/27/21 01/14/23 01/12/23 Rx ammonium lactate 12 % topical cream 1 applic topical DAILY #385 grams 08/07/22 01/14/23 01/13/23 Rx pantoprazole 40 mg tablet,delayed 40 mg PO BID #60 tabs 11/10/22 01/14/23 01/13/23 Rx release (Protonix) sucralfate 1 gram tablet (Carafate) 1 g PO TID #90 tabs 11/10/22 01/14/23 1 Week Ago Rx ~01/07/23 primidone 50 mg tablet 50 mg PO QPM 01/12/23 01/14/23 01/13/23 History rosuvastatin 5 mg tablet 5 mg PO QPM 01/12/23 01/14/23 01/13/23 History trazodone 100 mg tablet 100 mg PO QPM 01/12/23 01/14/23 01/12/23 History Allergies Allergy/AdvReac Type Severity Reaction Status Date / Time iodine Allergy Intermediate rash Verified 01/14/23 08:50 Penicillins Allergy Intermediate stomach Verified 01/14/23 08:50 PFSH Acute PFSH: Medical History Chronic low back pain Osteoarthritis of hands, bilateral Surgical History H/O: hysterectomy 2000; complete hysterectomy History of colonoscopy 12/2020; repeat in 5 years; Dr. Ferrer History of knee surgery left knee September 25, 2020 History of nasal surgery Hx of total knee arthroplasty Family History Other CAD (coronary artery disease) Cancer Family history of premature coronary artery disease Hypertension Rheumatoid arthritis Denies family history of Lupus Social History Smoking and tobacco status: former smoker Quit status (tobacco): has quit using tobacco Year quit tobacco: 2008 Former quit date comment: smoked PPD x 40 yrs Second hand smoke exposure: No Alcohol intake: unknown Substance/Drug Use: never Caregiver/support person: Yes (spouse) Lives independently: Yes Household members: spouse Marital status: service: No Current occupational status: retired Current gender identity: Female Special kentrell needs: No Agree to transfusion: Yes Female Reproductive History: Para: 2 Vitals/I&O/Wt Last Vital Signs Temp 97.3 F L 01/14/23 08:52 Pulse 91 01/14/23 08:52 Resp 16 01/14/23 08:52 BP 131/86 01/14/23 08:52 Pulse Ox 97 01/14/23 08:52 O2 Del Method Room Air 01/14/23 08:52 A&P Assessment and plan (1) History of colon polyps: (2) Dysphagia: (3) RUQ abdominal pain: Plan EGD with possible balloon dilation Screening colonoscopy Attestations Medical Necessity Statement*: home Coding Level of Care Code Acute Code for Chg Fwd Diagnoses History of colon polyps Z86.010 Dysphagia R13.10 RUQ abdominal pain R10.11
[2023-01-14 10:02] VITALS: BP 108/68; PULSE 58; RESP 16; TEMP 36.2; O2SAT 97
[2023-01-14 10:16] VITALS: BP 114/86; PULSE 86; RESP 17; O2SAT 98
--- NOTE | 2023-01-14 10:50 | ANE.PACU2 ---
Inpatient post-anesthesia follow up: Airway intact: Yes Vital signs: Temperature 97.2 F Pulse Rate 86 Respiratory Rate 17 Blood Pressure 114/86 Pulse Oximetry 98 Oxygen Delivery Me thod Room Air Oxygen Flow Rate Fraction of Inspir ed Oxygen Hydration adequate: No Nausea and vomiting: No Pain level: 1 Mental status: Baseline
== END 2023-01-14 10:50 | disposition home or self-care (01) ==
PROVIDERS: PCP Family Medicine; Visit Provider Surgery
PROC: 0DJD8ZZ Inspection of Lower Intestinal Tract, Via Natural or Artificial Opening Endoscopic (ICD-10-PCS; CPT 45378; 2023-01-14 09:15)
DX: K21.9 Gastro-esophageal reflux disease without esophagitis (principal); R13.10 Dysphagia, unspecified; R10.13 Epigastric pain; Z86.010 Personal history of colon polyps; K57.30 Diverticulosis of large intestine without perforation or abscess without bleeding; K22.2 Esophageal obstruction; K29.50 Unspecified chronic gastritis without bleeding; Z79.82 Long term (current) use of aspirin; Z87.891 Personal history of nicotine dependence
CPT/HCPCS: 43239; 45378; 88305; 88342; J2704; J7030

== ENCOUNTER → 2023-01-27 15:24 | Outpatient (BNVA) | payer MEDICARE, SELFPAY | PROVIDERS: PCP Family Medicine; Visit Provider Surgery | DX: Z09 Encounter for follow-up examination after completed treatment for conditions other than malignant neoplasm (principal) | CPT/HCPCS: 99213 ==

== ENCOUNTER 2023-02-03 12:13 | Day surgery (SDC) | payer MEDICARE, SELFPAY ==
[2023-02-03] VITALS (16 sets, daily range): BP systolic 108–170; BP diastolic 53–93; PULSE 66–90; RESP 14–18; TEMP 36.1–36.3; O2SAT 93–100; BMI 27.0
--- NOTE | 2023-02-03 12:58 | W.PM.OPSUD ---
Surgery/Procedure H&P Update DATE OF PROCEDURE: February 03, 2023 DATE H&P PERFORMED: 11/26/22 H&P UPDATE INFORMATION: I have reviewed H&P completed within last 30 days, I have examined patient prior to procedure and No changes to prior documentation PLANNED PROCEDURE: Operation Date: 02/03/23 14:00 Proposed Procedures p Laparoscopic Cholecystectomy 19259,R10.13,R10.11(Not Applicable) - Fabian Laguna, DO
[2023-02-03] MEDS: sodium chloride 0.9% 1,000 ML 30 ML IV (13:14)
--- NOTE | 2023-02-03 13:32 | ANES.PREANE2 ---
Pre-Anesthetic Assessment Height/Weight: Height 1.55 m Weight 64.864 kg Temp Pulse Resp BP Pulse Ox O2 Del Method 97 F L 81 18 108/85 100 Room Air 02/03/23 12:58 02/03/23 12:58 02/03/23 12:58 02/03/23 12:58 02/03/23 12:58 02/03/23 12:58 Operation Date: 02/03/23 14:00 Proposed Procedures p Laparoscopic Cholecystectomy 74977,R10.13,R10.11(Not Applicable) - Fabian Laguna DO Familial anesthetic complications: none Was Beta Naomi taken within 24 hours: N/A Was Clonidine taken within 24 hours: N/A Last intake: Intake Last Liquid Date 02/02/23 Last Liquid Time 23:00 Last Solid Date 02/02/23 Last Solid Time 12:00 Social No alcohol and No tobacco Exam alert, oriented x 3, clear to auscultation bilaterally and regular rate & rhythm Airway Mallampati: Class II Dentition: full GI Gastroesophageal Reflux Disease Metabolic Hyperlipidemia Anesthetic Plan ASA status: 2 Anesthesia: General Risk of > 500 ml blood loss (7ml/kg in children): No Medications/Allergies Home Medications Medication Instructions Recorded Confirmed Last Taken Type aspirin 81 mg chewable tablet 81 mg PO DAILY 10/04/20 02/03/23 01/12/23 History fluticasone propionate 50 2 spray intranasal DAILY #16 grams 11/14/20 02/03/23 3 Days Ago Rx mcg/actuation nasal ~01/31/23 spray,suspension (Flonase Allergy Relief) albuterol sulfate 90 mcg/actuation 2 puff inhalation QID PRN 10/10/21 02/03/23 2 Weeks Ago Rx aerosol inhaler (ProAir HFA) shortness of breath or wheezing ~01/20/23 #8.5 grams loratadine 10 mg tablet 10 mg PO BEDTIME #90 tabs 12/27/21 02/03/23 02/02/23 Rx ammonium lactate 12 % topical cream 1 applic topical DAILY #385 grams 08/07/22 02/03/23 02/02/23 Rx pantoprazole 40 mg tablet,delayed 40 mg PO BID #60 tabs 11/10/22 02/03/23 02/03/23 Rx release (Protonix) primidone 50 mg tablet 50 mg PO QPM 01/12/23 02/03/23 02/02/23 History trazodone 100 mg tablet 100 mg PO QPM 01/12/23 02/03/23 02/02/23 History rosuvastatin 5 mg tablet 5 mg PO QPM 02/03/23 02/03/23 02/02/23 History Allergies Allergy/AdvReac Type Severity Reaction Status Date / Time Penicillins Allergy Severe ALGY-Hives Verified 02/03/23 13:05 iodine Allergy Intermediate rash Verified 02/03/23 13:05 Current Medications Generic Name Dose Route Start Last Admin Trade Name Freq PRN Reason Stop Dose Admin Sodium Chloride 1,000 mls @ 30 mls/hr 02/03/23 12:45 02/03/23 13:14 Sodium Chloride 0.9% IV 02/04/23 12:44 30 mls/hr .Q24H PEREZ Administration PFSH Anesthesia Medical History Chronic low back pain Osteoarthritis of hands, bilateral Surgical History H/O: hysterectomy 2000; complete hysterectomy History of colonoscopy 12/2020; repeat in 5 years; Dr. Ferrer History of knee surgery left knee September 25, 2020 History of nasal surgery Hx of total knee arthroplasty Family History Other CAD (coronary artery disease) Cancer Family history of premature coronary artery disease Hypertension Rheumatoid arthritis Denies family history of Lupus Social History Smoking and tobacco status: former smoker Quit status (tobacco): has quit using tobacco Year quit tobacco: 2008 Former quit date comment: smoked PPD x 40 yrs Second hand smoke exposure: No Alcohol intake: unknown Substance/Drug Use: never Caregiver/support person: Yes (spouse) Lives independently: Yes Household members: spouse Marital status: service: No Current occupational status: retired Current gender identity: Female Special kentrell needs: No Agree to transfusion: Yes Female Reproductive History Para: 2 Data Anesthesia Cardiac Studies: No Data to Display
--- NOTE | 2023-02-03 14:08 | PC.NURSE ---
Per pharmacy request then per Dr. Laguna's order, changed highway commissioner order for vancomycin to Ancef 2 grams.
[2023-02-03] MEDS: ceFAZolin 2,000 MG in sodium chloride 0.9% (plus) 50 ML 100 MG IV (14:15)
--- NOTE | 2023-02-03 15:08 | P.OP_ITS ---
Operative Report Date of procedure: February 03, 2023 Pre-op diagnosis: Right upper quadrant syndrome Post-op diagnosis: same Procedure done: Laparoscopic cholecystectomy Implants: Surgicel Specimens removed/disposition: Gallbladder Surgeon: Fabian Laguna DO Anesthesia: General Estimated blood loss (mL): 5 Complications: None apparent Brief History: This very pleasant 67-year-old female who was diagnosed with right upper quadrant syndrome. Also the HIDA scan showed an ejection fraction over 75%. Laparoscopic cholecystectomy was indicated. The risk and benefits were explained and documented. Procedure: Patient was wheeled into the operative room and placed on the OR table in a supine position. Abdomen was inspected prepped and draped in usual sterile fashion. Time-out was performed and all present were in agreement. A 15 blade scalp was used to make a stab incision in the left upper quadrant and intra- abdominal insufflation was achieved using a Veress needle. After localizing the tissue incisions were made and a 5 millimeter trocar was placed into the umbilicus as well as 2 in the right upper quadrant. A 12 millimeter trocar was placed in the epigastrium. Gallbladder was grasped and elevated. The triangle of Calot was carefully dissected using blunt dissection and electrocautery until the triangle of Calot clearly identified. The cystic duct was clipped proximally and double clipped distally. The duct was then ligated proximally. The cystic artery was doubly clipped and ligated. The gallbladder was then removed from the liver bed using electrocautery. The gallbladder was removed from the abdomen using an Endo-Catch bag through the epigastric incision. The liver bed was inspected and some bleeding from the liver bed was seen. This was cauterized and then a piece of Surgicel was placed. The abdomen was irrigated and suctioned. All ports removed. Skin was washed and dried. Incisions were closed with 4-0 Monocryl in a subcuticular interrupted fashion. Skin glue was applied. Patient tolerated the procedure well.
[2023-02-03] MEDS: lidocaine-epi 2% 20 mL INJ INJECTION (15:10)
[2023-02-03] MEDS: HYDROmorphone 1 mg/mL INJ 1 mL 0.5 MG IVP ×2 (15:24→15:28)
[2023-02-03] MEDS: fentaNYL 50 mcg/mL INJ 2mL IVP (15:34)
[2023-02-03] MEDS: ondansetron 2 mg/ML SDV 2 mL 4 MG IVP (16:39)
[2023-02-03] MEDS: diphenhydrAMINE 50 mg/mL SDV 1mL 12.5 MG IVP (16:43)
[2023-02-03] MEDS: labetalol 5 mg/mL SDV 20mL 10 MG IVP (17:08)
[2023-02-03] MEDS: metoclopramide 5 mg/mL SDV 2 mL IVP (17:11)
--- NOTE | 2023-02-03 17:40 | ANE.PACU2 ---
Inpatient post-anesthesia follow up: Airway intact: Yes Vital signs: Temperature 97.4 F Pulse Rate 74 Respiratory Rate 14 Blood Pressure 153/74 Pulse Oximetry 95 Oxygen Delivery Me thod Room Air Oxygen Flow Rate Fraction of Inspir ed Oxygen Hydration adequate: Yes Nausea and vomiting: No Pain level: 1 Mental status: Baseline
== END 2023-02-03 17:55 | disposition home or self-care (01) ==
PROVIDERS: PCP Family Medicine; Visit Provider Surgery
PROC: 0FT44ZZ Resection of Gallbladder, Percutaneous Endoscopic Approach (ICD-10-PCS; CPT 47562; principal; 2023-02-03 13:40)
DX: K80.10 Calculus of gallbladder with chronic cholecystitis without obstruction (principal); K21.9 Gastro-esophageal reflux disease without esophagitis; E78.5 Hyperlipidemia, unspecified; Z79.82 Long term (current) use of aspirin; Z87.891 Personal history of nicotine dependence
CPT/HCPCS: 47562; 88304; J0690; J1100; J1170; J1200; J2405; J2704; J2765; J3010; J3490; J7030

== ENCOUNTER → 2023-02-17 08:43 | Outpatient (BNVA) | payer MEDICARE, SELFPAY | PROVIDERS: PCP Family Medicine; Visit Provider Surgery | DX: Z90.49 Acquired absence of other specified parts of digestive tract (principal); Z98.890 Other specified postprocedural states | CPT/HCPCS: 99024 ==

== ENCOUNTER 2023-03-24 13:01 | Outpatient (CLI) | payer MEDICARE, SELFPAY ==
--- NOTE | 2023-03-24 13:00 | MM_ITS ---
WS: [id number] Bilateral screening 3D tomosynthesis digital mammogram, 03/24/2023 Clinical Data: SCREENING Comparison: 02/14/2022, 02/12/2021, 10/12/2019, 07/14/2018, 03/20/2017, 01/10/2016, 05/06/2013, 07/11/2011, 06/25/2011. Findings: The breast parenchymal pattern shows fibroglandular tissue. There is asymmetric tissue in the upper o uter quadrant of the right breast unchanged. No spiculated masses or clustered calcifications are see n. There are no secondary signs of carcinoma. Mole markers are on both breasts. Impression: 1. Negative bilateral mammogram unchanged. 2. Recommend annual screening mammograms. MM/[place] [id number] BIRADS: 1-Negative FOLLOW UP: 1 Year Follow-up The CAD engineering drawings checker was used.
== END 2023-03-24 13:02 | disposition home or self-care (01) ==
LOC: MOBLMAM 13:03
PROVIDERS: PCP Family Medicine; Visit Provider Family Medicine
DX: Z12.31 Encounter for screening mammogram for malignant neoplasm of breast (principal)
CPT/HCPCS: 77063; 77067

== ENCOUNTER → 2023-03-30 15:46 | Outpatient (BNVA) | payer MEDICARE, SELFPAY | PROVIDERS: PCP Family Medicine; Visit Provider Nurse Practitioner Family | DX: R05.9 Cough, unspecified (principal) | CPT/HCPCS: 87400; 87426 ==

== ENCOUNTER → 2023-05-26 16:42 | Outpatient (BNVA) | payer MEDICARE, SELFPAY | PROVIDERS: PCP Family Medicine; Visit Provider Family Medicine | DX: E78.2 Mixed hyperlipidemia (principal) | CPT/HCPCS: 80053; 80061; 84443; 85025 ==

== ENCOUNTER → 2023-08-27 11:00 | Outpatient (BNVA) | payer MEDICARE, SELFPAY | PROVIDERS: PCP Family Medicine; Visit Provider Nurse Practitioner Family | DX: L57.0 Actinic keratosis (principal); L82.1 Other seborrheic keratosis; L24.0 Irritant contact dermatitis due to detergents; L81.4 Other melanin hyperpigmentation; D22.5 Melanocytic nevi of trunk; L85.3 Xerosis cutis; L57.8 Other skin changes due to chronic exposure to nonionizing radiation | CPT/HCPCS: 17000; 99214 ==

== ENCOUNTER → 2023-11-03 10:34 | Outpatient (BNVA) | payer MEDICARE, SELFPAY | PROVIDERS: PCP Family Medicine; Visit Provider Family Medicine | DX: G25.0 Essential tremor (principal); E78.2 Mixed hyperlipidemia; E04.1 Nontoxic single thyroid nodule; R07.9 Chest pain, unspecified | CPT/HCPCS: 80053; 80061; 84443; 85025 ==

== ENCOUNTER → 2024-01-28 09:30 | Outpatient (BNVA) | payer MEDICARE, SELFPAY | PROVIDERS: PCP Family Medicine; Visit Provider Family Medicine | DX: E78.2 Mixed hyperlipidemia (principal); R63.5 Abnormal weight gain | CPT/HCPCS: 80053; 80061; 84443; 85025 ==

== ENCOUNTER → 2024-02-29 15:17 | Outpatient (BNVA) | payer MEDICARE, SELFPAY | PROVIDERS: PCP Family Medicine | DX: R30.0 Dysuria (principal) | CPT/HCPCS: 81000 ==

== ENCOUNTER 2024-03-24 13:13 | Outpatient (CLI) | payer MEDICARE, SELFPAY ==
--- NOTE | 2024-03-24 13:30 | MM_ITS ---
WS: [id number] BILATERAL 3D TOMOSYNTHESIS DIGITAL DIAGNOSTIC MAMMOGRAPHY WITH CAD CLINICAL INFORMATION: N64.4 - Mastodynia HISTORY: RIGHT breast pain COMPARISON: 2022 TECHNIQUE: Bilateral CC, MLO, and ML views. FINDINGS: Scattered fibroglandular densities bilaterally. Pain markers upper outer RIGHT breast. Ultrasound of this area is pending. Incidental benign calcifications bilaterally. Unremarkable LEFT breast. ULTRASOUND BREAST RIGHT TECHNIQUE: Ultrasound right breast focused area of concern. CLINICAL INFORMATION: N64.4 - Mastodynia FINDINGS: Ultrasound RIGHT breast in the area of concern 9 and 10 o'clock position. No suspicious underlying cy stic or solid lesions. No suspicious lesions to target for biopsy. Findings are benign. Recommend ret urn to annual screening mammography MM/MM diag BI tomosynthesis [id number] IMPRESSION: DENSITY: There are scattered areas of fibroglandular density. BI-RADS: 2 - Benign. FOLLOW UP: 1 Year Follow-up Recommend return to annual screening mammography.
--- NOTE | 2024-03-24 14:00 | US_ITS ---
WS: [id number] BILATERAL 3D TOMOSYNTHESIS DIGITAL DIAGNOSTIC MAMMOGRAPHY WITH CAD CLINICAL INFORMATION: N64.4 - Mastodynia HISTORY: RIGHT breast pain COMPARISON: 2022 TECHNIQUE: Bilateral CC, MLO, and ML views. FINDINGS: Scattered fibroglandular densities bilaterally. Pain markers upper outer RIGHT breast. Ultrasound of this area is pending. Incidental benign calcifications bilaterally. Unremarkable LEFT breast. ULTRASOUND BREAST RIGHT TECHNIQUE: Ultrasound right breast focused area of concern. CLINICAL INFORMATION: N64.4 - Mastodynia FINDINGS: Ultrasound RIGHT breast in the area of concern 9 and 10 o'clock position. No suspicious underlying cy stic or solid lesions. No suspicious lesions to target for biopsy. Findings are benign. Recommend ret urn to annual screening mammography US/US breast RT limited* [id number] IMPRESSION: DENSITY: There are scattered areas of fibroglandular density. BI-RADS: 2 - Benign. FOLLOW UP: 1 Year Follow-up Recommend return to annual screening mammography.
== END 2024-03-24 13:14 | disposition home or self-care (01) ==
LOC: RAD 13:16
PROVIDERS: PCP Nurse Practitioner Family; Visit Provider Nurse Practitioner Family
DX: N64.4 Mastodynia (principal); R92.323 Mammographic fibroglandular density, bilateral breasts
CPT/HCPCS: 76642; 77062; G0279

== ENCOUNTER 2024-03-25 13:29 | Emergency (ER) | payer MEDICARE, SELFPAY ==
[2024-03-25 13:33] VITALS: BP 136/65; PULSE 105; RESP 16; TEMP 36.6; O2SAT 95
--- NOTE | 2024-03-25 13:45 | XR_ITS ---
WS: [id number] XR knee LT 3V* [id number] REASON FOR EXAM: fall FINDINGS: Total left knee arthroplasty with central post (PCL replacing) and long intramedullary femoral and ti bial stems. The examination is unchanged compared to 10/04/2010. No acute fracture is identified. XR/XR knee LT 3V* [id number] IMPRESSION: Total left knee arthroplasty without significant abnormality.
--- NOTE | 2024-03-25 13:45 | XR_ITS ---
WS: [id number] XR ankle LT min 3V* [id number] REASON FOR EXAM: fall FINDINGS: Soft tissue swelling over the lateral malleolus. Oblique minimally displaced intra syndesmotic fracture of the distal left fibula. The joint spaces of the ankle are intact and relatively well preserved. XR/XR ankle LT min 3V* [id number] IMPRESSION: Left ankle fracture as above.
--- NOTE | 2024-03-25 14:32 | W.ED.LOWEXIN ---
HPI - Extremity Injury (Lower) General: Chief Complaint: Extremity Injury, Lower Stated Complaint: fall, Left leg pain Time Seen by Provider: 03/25/24 14:31 Source: patient Mode of arrival: wheelchair Limitations: no limitations History of Present Illness: Patient is a nice 68-year-old female presents to ED today with a complaint of left lower extremity injury that she sustained just prior to arrival. She states she accidentally stepped in a hole and twisted her left lower extremity. She has pain to the left knee and left ankle. Patient concerned as she has had 3 surgeries regarding her left knee replacement. She states most of her pain at this time is located to her left ankle. She denies striking her head or LOC. No other physical complaints at this time. MD complaint: knee injury and ankle injury Onset (ago): hour(s) Injury: Left: knee and ankle Place: home Severity: moderate Relieving factors: immobilization Exacerbating factors: weight bearing, movement and palpation Context: fall and walking Associated symptoms: Reports inability to bear weight Other symptoms: none Related Data Previous Rx's Medication Instructions Recorded ammonium lactate 12 % topical cream 1 applic topical DAILY #385 grams 08/07/22 docusate sodium 100 mg capsule 100 mg PO BID #14 caps 02/03/23 (Colace) loratadine 10 mg tablet 10 mg PO BEDTIME #90 tabs 11/03/23 albuterol sulfate 90 mcg/actuation 2 puff inhalation QID PRN 01/28/24 aerosol inhaler shortness of breath or wheezing #8.5 grams fluticasone propionate 50 2 spray intranasal DAILY #16 grams 01/28/24 mcg/actuation nasal spray,suspension (Flonase Allergy Relief) primidone 50 mg tablet 50 mg PO QPM #180 tabs 01/28/24 ropinirole 0.5 mg tablet 0.5 mg PO .qhs restless legs #90 01/28/24 tabs rosuvastatin 10 mg tablet 10 mg PO DAILY #90 tabs 01/28/24 trazodone 100 mg tablet 150 mg (1.5 x 100 mg) .Route 01/28/24 .COMPLEX #145 tabs Allergies Allergy/AdvReac Type Severity Reaction Status Date / Time Penicillins Allergy Severe ALGY-Hives Verified 03/25/24 13:38 iodine Allergy Intermediate rash Verified 03/25/24 13:38 Review of Systems Musc: Reports: joint pain (L ankle, L knee) and joint swelling (lateral L ankle) Neuro: Denies: numbness in extremities or sensory changes PFSH ED PFSH: Medical History Chronic low back pain Osteoarthritis of hands, bilateral Surgical History Status post laparoscopic cholecystectomy Hx of total knee arthroplasty History of colonoscopy 12/2020; repeat in 5 years; Dr. Ferrer History of nasal surgery H/O: hysterectomy 2000; complete hysterectomy History of knee surgery left knee September 25, 2020 Family History Other CAD (coronary artery disease) Cancer Family history of premature coronary artery disease Hypertension Rheumatoid arthritis Denies family history of Lupus Social History Smoking and tobacco/nicotine status: never used tobacco/nicotine Quit status (tobacco/nicotine): has quit using Year quit tobacco: 2008 Former quit date comment: smoked PPD x 40 yrs Second hand smoke exposure: No Alcohol intake: unknown Substance/Drug Use: never Caregiver/support person: Yes (spouse) Lives independently: Yes Household members: spouse Marital status: service: No Current occupational status: retired Current gender identity: Female Special kentrell needs: No Agree to transfusion: Yes Female Reproductive History: Para: 2 Physical Exam Const: COMMON NORMALS: no acute distress, average body habitus, patient oriented x3, no limitations, healthy appearing, alert and well nourished GENERAL APPEARANCE: cooperative ORIENTATION/CONSCIOUSNESS: Yes awake, Yes oriented to person, Yes oriented to place and Yes oriented to time Extremity: COMMON NORMALS: capillary refill normal, no clubbing, cyanosis or edema, no calf tenderness and no pedal edema GENERAL: Yes normal exam except as noted LEFT LOWER EXTREMITY: Yes knee joint (good ROM without much discomfort) Left knee: Yes inspection (normal gross inspection-no edema) and Yes neurovascular exam (normal) and Yes ankle joint (TTP and edema to lateral L ankle) Left ankle: Yes ROM (limited due to pain) and Yes neurovascular exam (normal) Neuro: COMMON NORMALS: patient oriented x3, moves all extremities, no focal motor deficits and no sensory deficits noted SENSORIUM/ORIENTATION: Yes alert, Yes oriented to person, Yes oriented to place and Yes oriented to time Course Vital Signs: Vital signs: Vital Signs Temperature 97.9 F 03/25/24 13:33 Pulse Rate 105 H 03/25/24 13:33 Respiratory Rate 16 03/25/24 13:33 Blood Pressure 136/65 03/25/24 13:33 Pulse Oximetry 95 03/25/24 13:33 MDM - Extremity Injury (Lower) Medical Decision Making XR with distal fib fracture. Will splint and have her follow up with ortho. She does want [facility] referral for now but states she has her ortho specialist in [place] that she will also contact to see if they would like to see her for this. She declines crutches/wheelchair. States she wants to use her walker. Lab Data Radiology Impressions Ankle X-Ray 03/25/24 13:45 IMPRESSION: Left ankle fracture as above. Knee X-Ray 03/25/24 13:45 IMPRESSION: Total left knee arthroplasty without significant abnormality. All radiology interpretation(s) finalized by discharge Discharge Plan Discharge Patient Disposition: Home Clinical Impression: Closed fracture of distal end of left fibula Qualifiers: Encounter type: initial encounter Fracture morphology: unspecified fracture morphology Qualified Code(s): S82.832A - Other fracture of upper and lower end of left fibula, initial encounter for closed fracture Condition: Stable Prescriptions: No Action loratadine 10 mg tablet 10 mg PO BEDTIME Qty: 90 1RF primidone 50 mg tablet 50 mg PO QPM Qty: 180 1RF Rx Instructions: TAKE TWO TABLETS BY MOUTH AT BEDTIME. trazodone 100 mg tablet 150 mg .ROUTE .COMPLEX Qty: 145 1RF Rx Instructions: 150 mg; rosuvastatin 10 mg tablet 10 mg PO DAILY Qty: 90 1RF ropinirole 0.5 mg tablet 0.5 mg PO .qhs Qty: 90 2RF fluticasone propionate [Flonase Allergy Relief] 50 mcg/actuation spray,suspension 2 spray intranasal DAILY Qty: 16 5RF Rx Instructions: administer into each nostril albuterol sulfate 90 mcg/actuation HFA aerosol inhaler 2 puff inhalation QID PRN (Reason: shortness of breath or wheezing) Qty: 8.5 2RF ammonium lactate 12 % cream 1 applic topical DAILY Qty: 385 1RF Rx Instructions: apply to affected areas Colace 100 mg capsule 100 mg PO BID Qty: 14 0RF Discharge Orders: Discharge ED (Routine); Ordered 03/25/24 Ordered By: Simona Kilpatrick Referrals: Lashay Interiano FNP [Primary Care Provider] - Patient Instructions: Ankle Fracture (DC) Activity Restrictions/Additional Instructions: As discussed, we will place a referral for you to follow-up with orthopedics. As we discussed, no weightbearing until told otherwise by orthopedics. You need to ice and elevate the extremity. You have indicated that you have pain medications you may take as needed for severe pain at home. Coding Level of Care Code ED Entry Level Marketing Representative for Alina Stevens
--- NOTE | 2024-03-28 07:17 | DCPLANNER ---
messaged ortho for er f/u
== END 2024-03-25 15:16 | disposition home or self-care (01) ==
PROVIDERS: Emergency Provider Physician Assistant; PCP Nurse Practitioner Family
DX: S82.832A Other fracture of upper and lower end of left fibula, initial encounter for closed fracture (principal); Z87.891 Personal history of nicotine dependence; X58.XXXA Exposure to other specified factors, initial encounter
CPT/HCPCS: 73562; 73610; 99283; E0114

== ENCOUNTER → 2024-06-10 10:52 | Outpatient (BNVA) | payer MEDICARE, SELFPAY | PROVIDERS: PCP Nurse Practitioner Family; Visit Provider Nurse Practitioner Family | DX: L82.1 Other seborrheic keratosis (principal); L81.4 Other melanin hyperpigmentation; D22.5 Melanocytic nevi of trunk; L85.3 Xerosis cutis; L57.8 Other skin changes due to chronic exposure to nonionizing radiation; L21.8 Other seborrheic dermatitis; L82.0 Inflamed seborrheic keratosis; L29.89 Other pruritus; L57.0 Actinic keratosis; L53.8 Other specified erythematous conditions | CPT/HCPCS: 17000; 17110; 99214 ==